=== PATIENT | male | born 1950 | race Caucasian/White ===

== ENCOUNTER 2017-05-24 12:21 | Emergency (ER) | payer BC, OTHER ==
--- NOTE | 2017-05-24 12:48 | EDM.PDOC ---
ED HPI GENERAL MEDICAL PROBLEM - General Chief Complaint: Cardiovascular Problem Stated Complaint: SYNCOPE 20 MIN AGO Time Seen by Provider: 05/24/17 12:47 Source of Information: Reports: Patient - History of Present Illness INITIAL COMMENTS - FREE TEXT/NARRATIVE: Patient is here for evaluation for an episode syncope that occurred approximately 11:30 AM this morning. Patient states that he was sitting in the chair did have an episode of coughing. He was feeling warm. He got up to discuss this with going to the walk-in clinic for evaluation of his cough and did have syncopal episode. He does not know if he hit his head but he denies any headache. states that he was only out for several seconds. When he awoke he had no nausea vomiting. He was mentally cognizant immediately upon awakening per his Patient states he has had a URI for the past 5 days. He was taking several medications including coricidin and a antihistamine. He has been eating adequately but not drinking enough fluids per his report. He has previous CHF and his edema has pretty much resolved and his lower extremities which he states he's had edema for extended period of time. - Related Data Allergies Allergy/AdvReac Type Severity Reaction Status Date / Time codeine Allergy Syncope Verified 05/24/17 12:38 Home Meds: Home Meds Allopurinol [Zyloprim] 200 mg PO DAILY PRN 05/24/17 [History] Aspirin [Ecotrin] 81 mg PO DAILY 05/24/17 [History] Cyclobenzaprine [Flexeril] 10 mg PO Q8H 05/24/17 [History] Digoxin [Digox] 1 tab PO DAILY 05/24/17 [History] Docusate Sodium [Colace] 100 mg PO BID 05/24/17 [History] Hydrochlorothiazide 0.5 tab PO DAILY 05/24/17 [History] Hydrocodone/Acetaminophen [Lorcet Hd 10-325 mg Tablet] 1 - 2 tab PO Q4H PRN [History] Ibuprofen 1 - 2 tab PO Q8H PRN 05/24/17 [History] Indomethacin 25 mg PO TID PRN 05/24/17 [History] Isosorbide Mononitrate [Imdur] 15 mg PO DAILY 05/24/17 [History] Lisinopril 20 mg PO DAILY 05/24/17 [History] Metoprolol Succinate 50 mg PO DAILY 05/24/17 [History] Simvastatin [Zocor] 20 mg PO DAILY 05/24/17 [History] Past Medical History Cardiovascular History: Reports: Arrhythmia, Bypass Gastrointestinal History: Reports: None Musculoskeletal History: Reports: Arthritis - Past Surgical History Cardiovascular Surgical History: Reports: Vascular Surgery Social & Family History - Tobacco Use Smoking Status *Q: Never Smoker - Caffeine Use Caffeine Use: Reports: None - Recreational Drug Use Recreational Drug Use: No ED ROS GENERAL - Review of Systems Review Of Systems: See Below Constitutional: Reports: Weakness, Fatigue. Denies: Fever, Chills, Malaise, Decreased Appetite HEENT: Reports: Rhinitis, Sinus Problem. Denies: Ear Discharge, Ear Pain, Throat Pain, Throat Swelling Respiratory: Reports: Cough, Sputum. Denies: Shortness of Breath, Wheezing, Hemoptysis Cardiovascular: Reports: Edema (Improved over past 2 days). Denies: Chest Pain , Blood Pressure Problem GI/Abdominal: Denies: Abdominal Pain, Nausea, Vomiting Musculoskeletal: Reports: No Symptoms Skin: Reports: No Symptoms ED EXAM, GENERAL - Physical Exam Exam: See Below Exam Limited By: No Limitations General Appearance: Alert, WD/WN, No Apparent Distress Ears: Normal External Exam, Normal Canal, Normal TMs Nose: Normal Inspection, Nasal Drainage (Purulent) Throat/Mouth: Normal Inspection, Normal Oropharynx, Normal Voice, No Airway Compromise, Other (Clear postnasal drainage) Head: Atraumatic, Normocephalic Neck: Normal Inspection, Supple, Non-Tender. No: Lymphadenopathy (L), Lymphadenopathy (R) Respiratory/Chest: No Respiratory Distress, Lungs Clear, Normal Breath Sounds Cardiovascular: Normal Peripheral Pulses, Regular Rate, Rhythm, No Murmur, Other (1+ nonpitting edema bilateral lower extremities) Peripheral Pulses: 2+: Posterior Tibial (L), Posterior Tibial (R) GI/Abdominal: Normal Bowel Sounds, Soft, Non-Tender, No Distention Neurological: Alert, Oriented, No Motor/Sensory Deficits Psychiatric: Normal Affect, Normal Mood Skin Exam: Warm, Dry, Intact Lymphatic: No Adenopathy Course - Vital Signs Last Recorded V/S: Last Vital Signs Temp 97 F 05/24/17 12:31 Pulse 100 05/24/17 12:31 Resp 18 05/24/17 12:31 BP Pulse Ox 98 05/24/17 12:31 - Orders/Labs/Meds Orders: Active Orders 24 hr Category Date Time Status EKG 12 Lead [EKG Documentation Completion] [RC] STAT Care 05/24/17 12:56 Active Holter Monitor 48 Hours [RC] .PRN Care 05/24/17 14:34 Active CXR [Chest 2V] [CR] Stat Exams 05/24/17 12:56 Taken PRO B-TYPE NATRIUR PEPT,BNPPRO [CHEM] Stat Lab 05/24/17 13:15 Received Sodium Chloride 0.9% [Normal Saline] 1,000 ml Med 05/24/17 12:57 Active IV ONETIME Medication Orders Sodium Chloride (Normal Saline) 1,000 mls @ 250 mls/hr IV ONETIME ONE Stop: 05/24/17 16:56 Last Admin: 05/24/17 13:16 Dose: 250 mls/hr Labs: Laboratory Tests 05/24/17 05/24/17 Range/Units 13:15 13:15 WBC 9.40 H (4.23-9.07) K/mm3 RBC 5.95 (4.63-6.08) M/mm3 Hgb 17.9 H (13.7-17.5) gm/L Hct 52.1 H (40.1-51.0) % MCV 87.6 (79.0-92.2) fl MCH 30.1 (25.7-32.2) pg MCHC 34.4 (32.2-35.5) g/dl RDW Std Deviation 43.7 (35.1-43.9) fL Plt Count 179 (163-337) K/mm3 MPV 11.3 (9.4-12.3) fl Neutrophils % (Manual) 84 H (40-60) % Band Neutrophils % 0 (0-10) % Lymphocytes % (Manual) 9 L (20-40) % Atypical Lymphs % 0 % Monocytes % (Manual) 4 (2-10) % Eosinophils % (Manual) 2 (0.8-7.0) % Basophils % (Manual) 1 (0.2-1.2) Platelet Estimate Adequate Plt Morphology Comment Normal RBC Morph Comment Normal Sodium 133 L (136-145) mEq/L Potassium 3.8 (3.5-5.1) mEq/L Chloride 98 (98-107) mEq/L Carbon Dioxide 25 (21-32) mEq/L Anion Gap 13.8 (5-15) BUN 23 H (7-18) mg/dL Creatinine 1.3 (0.7-1.3) mg/dL Est Cr Clr Drug Dosing 70.48 mL/min Estimated GFR (MDRD) 56 (>60) mL/min BUN/Creatinine Ratio 17.7 (14-18) Glucose 132 H (80-115) mg/dL Calcium 9.7 (8.5-10.1) mg/dL Total Bilirubin 2.3 H (0.2-1.0) mg/dL AST 27 (15-37) U/L ALT 48 (16-63) U/L Alkaline Phosphatase 113 (46-116) U/L Troponin I < 0.017 (0.00-0.056) ng/mL C-Reactive Protein 2.1 H* (<1.0) mg/dL Total Protein 8.5 H (6.4-8.2) g/dl Albumin 3.7 (3.4-5.0) g/dl Globulin 4.8 gm/dL Albumin/Globulin Ratio 0.8 L (1-2) Meds: Medications Generic Name Dose Route Start Last Admin Trade Name Freq PRN Reason Stop Dose Admin Sodium Chloride 1,000 mls @ 250 mls/hr 05/24/17 12:57 05/24/17 13:16 Normal Saline IV 05/24/17 16:56 250 mls/hr ONETIME ONE Administration - Re-Assessments/Exams Free Text/Narrative Re-Assessment/Exam: Syncopal episode is likely a combination of his recent illness, dehydration and coughing spell. Patient does have atrial fibrillation as well so this could have contributed. He is anticoagulated on a Eliquis, this was not initially listed on his medication list. He does follow with cardiology for previous bypass and has an upcoming appointment scheduled with them. Lungs are CTA bilaterally on exam. I suspect most of his coughing is related to postnasal drainage. Chest x-ray demonstrates no infiltrates or obvious consolidation. Official radiologist report is pending. CBC demonstrates a white count of 9,400 with 84% neutrophils and no bands. CRP is 2.1. I suspect that patient's symptoms are viral in etiology. Discussed supportive care of patient's URI. Will also get a Holter monitor, he will follow-up with his PCP within a week to go over these results. Bilirubin is also slightly elevated, LFTs are normal. Patient asymptomatic. This can be monitored on an outpatient basis. He will follow up with cardiology as planned. Certainly return to emergency room if needed. 05/24/17 14:46 05/24/17 14:48 05/24/17 14:50 Departure - Departure Time of Disposition: 14:50 Disposition: Home, Self-Care 01 Condition: Good Clinical Impression: Viral URI with cough Syncope Qualifiers: Syncope type: unspecified Qualified Code(s): R55 - Syncope and collapse Atrial fibrillation Qualifiers: Atrial fibrillation type: unspecified Qualified Code(s): I48.91 - Unspecified atrial fibrillation Instructions: Viral Illness, Adult, Atrial Fibrillation Referrals: Riki Shoemaker Jr, MD [Primary Care Provider] - Forms: ED Department Discharge Additional Instructions: Your evaluated in the emergency room for a fainting episode. This is likely a combination of your viral cold, the cold medication, dehydration and your atrial fibrillation. I recommend supportive care of rest and fluids. Consider the saline sinus rinse as we discussed. Return your Holter monitor in 48 hours and follow up with your provider in one week to discuss these results. Certainly return to the emergency room if any worsening of symptoms. - My Orders Last 24 Hours: My Active Orders 05/24/17 12:56 EKG 12 Lead [EKG Documentation Completion] [RC] STAT CXR [Chest 2V] [CR] Stat 05/24/17 12:57 Sodium Chloride 0.9% [Normal Saline] 1,000 ml IV ONETIME 05/24/17 13:15 PRO B-TYPE NATRIUR PEPT,BNPPRO [CHEM] Stat 05/24/17 14:34 Holter Monitor 48 Hours [RC] .PRN - Assessment/Plan Last 24 Hours: My Active Orders 05/24/17 12:56 EKG 12 Lead [EKG Documentation Completion] [RC] STAT CXR [Chest 2V] [CR] Stat 05/24/17 12:57 Sodium Chloride 0.9% [Normal Saline] 1,000 ml IV ONETIME 05/24/17 13:15 PRO B-TYPE NATRIUR PEPT,BNPPRO [CHEM] Stat 05/24/17 14:34 Holter Monitor 48 Hours [RC] .PRN
[2017-05-24] MEDS ORDERED: Sodium Chloride 0.9% 1,000 ML IV ONE (12:57)
--- NOTE | 2017-05-25 06:47 | CR ---
Chest: Two views of the chest were obtained. Comparison: No prior chest x-ray. Heart size at the upper limits of normal. Previous sternotomy is noted presumably for CABG. Lungs are clear. Scattered degenerative change is seen within the spine. Impression: 1. Incidental findings. Nothing acute is seen on two-view chest x-ray. Diagnostic code #2
== END 2017-05-24 15:17 | disposition home or self-care (01) ==
LOC: JD.ED 12:21
DX: R55 Syncope and collapse (principal); J06.9 Acute upper respiratory infection, unspecified; I48.91 Unspecified atrial fibrillation; Z88.5 Allergy status to narcotic agent; Z79.82 Long term (current) use of aspirin; Z79.899 Other long term (current) drug therapy
CPT/HCPCS: 36415; 71046; 80053; 83880; 84484; 85025; 86140; 93005; 93225; 93226; 96360; 96361; 99284; J7040; 93010